=== PATIENT | female | born 1995 | race Two or more races ===

== ENCOUNTER 2021-08-20 14:27 | Outpatient (CLI) | payer OTHER | END 2021-08-20 15:45 | disposition home or self-care (01) | LOC: PRENATAL 14:27 | PROVIDERS: ATTEND Obstetrics & Gynecology Maternal & Fetal Medicine | DX: O35.0XX1 Maternal care for (suspected) central nervous system malformation in fetus, fetus 1 (principal); O35.3XX1 Maternal care for (suspected) damage to fetus from viral disease in mother, fetus 1; O98.512 Other viral diseases complicating pregnancy, second trimester; Z36.89 Encounter for other specified antenatal screening; Z3A.24 24 weeks gestation of pregnancy ==

== ENCOUNTER 2024-03-07 10:05 | Inpatient (IN) | payer OTHER ==
[~2024-03-07] VITALS: Ht 175.3 cm; Wt 88.5 kg
[2024-03-07 10:44] LABS: URINE APPEARANCE Clear; URINE BILIRRUBIN Negative (NEGATIVE); URINE BLOOD Small; URINE COLOR Yellow; URINE GLUCOSE Negative (NEGATIVE); URINE KETONE Trace (NEGATIVE); URINE LEUKOCYTE Negative; URINE NITRATE Negative; URINE PROTEIN 30 (NEGATIVE); URINE UROBILINOGEN 0.2 E.U./dl
[2024-03-07 10:47] LABS: URINE BACTERIA 369.1 uL (0.0-1933); URINE EPITHELIAL CELLS 19.3 uL (0.0-38.8); URINE RBC 42.4 uL (0.0-20.8); URINE WBC 7.5 uL (0.0-23.2)
[2024-03-07 11:00] LABS: HEMATOCRIT 38.1 % (36.0-45.00); HEMOGLOBIN 12.9 g/dL (12.0-15.00); INR < 0.93; MEAN CORPUSCULAR HEMOGLOBIN 31.9 pg (27.00-32.0); PARTIAL THROMBOPLASTIN TIME 24.2 SECONDS (22.0-34.0); PLATELET COUNT 297 K/uL (150-450); PROTHROMBIN TIME 9.4 SECONDS (9.0-11.5); RED BLOOD COUNT 4.05 M/uL (4.00-6.00); RED CELL DISTRIBUTION WIDTH 13.2 % (11.5-14.5)
[2024-03-08] MEDS ORDERED: VITATRUE COMBO1 EACH PO (07:49)
[2024-03-08] MEDS ORDERED: ERYTHROMYCIN BASE 1 GM TUBE OP ONE ×2 (14:47→17:00)
[2024-03-08] MEDS ORDERED: OXYTOCIN 10 UNITS/ML VIAL ONE (14:47)
[2024-03-08] MEDS ORDERED: CEFAZOLIN SODIUM 1,000 MG VIAL ONE (14:52)
[2024-03-08] MEDS ORDERED: OXYTOCIN 10 UNIT/ML (10ML) IV ONE (17:00)
[2024-03-08] MEDS ORDERED: CEFAZOLIN SODIUM 1,000 MG VIAL IV SCH (17:00)
[2024-03-08] MEDS ORDERED: PROMETHAZINE HCL 50 MG/ML AMPUL IM PRN (18:30)
[2024-03-08] MEDS ORDERED: MEPERIDINE HCL/PF 50 MG/ML VIAL IM PRN (18:30)
[2024-03-08 18:54] LABS: ABG PH 7.292 (7.35-7.45); ABG PO2 18.3 mmHg (80-100); ABG pCO2 52.7 mmHg (35-45); BASE EXCESS -2.5 mmol/l; BICARBONATE 24.8 mmol/l (23-25); SaO2 21.5 %; Tco2 26.5 mmol/l; o2 21 %
[2024-03-09 06:29] LABS: HEMATOCRIT 38.4 % (36.0-45.00); HEMOGLOBIN 13.3 g/dL (12.0-15.00); MEAN CELL VOLUME 93.5 fL (80.00-100.00); MEAN CORPUSCULAR HEMOGLOBIN 32.3 pg (27.00-32.0); MEAN CORPUSCULAR HGB CONC 34.6 g/dl (32.0-36.0); PLATELET COUNT 273 K/uL (150-450); RED BLOOD COUNT 4.11 M/uL (4.00-6.00); RED CELL DISTRIBUTION WIDTH 12.9 % (11.5-14.5)
[2024-03-09] MEDS ORDERED: PNV,CALCIUM 72/IRON/FOLIC ACID 1 TAB TABLET PO SCH (09:00)
[2024-03-09] MEDS ORDERED: OxyCODONE HCL/APAP UD (PERCOCET) PO PRN (09:00)
[2024-03-09] MEDS ORDERED: DOCUSATE SODIUM 100MG CAP PO SCH (09:00)
[2024-03-09] MEDS ORDERED: SIMETHICONE 125 MG CAPSULE PO SCH (09:00)
[2024-03-10] MEDS ORDERED: IBUprofen 600 MG TABLET PO PRN (13:45)
== END 2024-03-11 12:48 | disposition home or self-care (01) | DRG 788 ==
LOC: O/R 03-08 08:00 → OB/GYN 03-08 08:00 → O/R 03-08 18:55 → OB/GYN 03-08 21:19
PROVIDERS: ADMIT Obstetrics & Gynecology; ATTEND Obstetrics & Gynecology
PROC: 4A1HXCZ Monitoring of Products of Conception, Cardiac Rate, External Approach (ICD-10-PCS; 2024-03-08)
PROC: 10D00Z1 Extraction of Products of Conception, Low, Open Approach (ICD-10-PCS; principal; 2024-03-08 16:00)
DX: O82 Encounter for cesarean delivery without indication (principal); Z3A.39 39 weeks gestation of pregnancy; Z37.0 Single live birth; Z20.822 Contact with and (suspected) exposure to COVID-19

== ENCOUNTER 2024-07-20 10:12 | Emergency (ER) | payer OTHER ==
[~2024-07-20] VITALS: Ht 175.3 cm; Wt 72.6 kg
[~2024-07-20 10:12] MED LIST: VITATRUE COMBO1 EACH PO
[2024-07-20 10:54] VITALS: BP 116/76; O2SAT 98
[2024-07-20] MEDS ORDERED: KETOROLAC TROMETHAMINE 60 MG VIAL IM ONE (11:45)
[2024-07-20] MEDS ORDERED: TRIAMCINOLONE ACETONIDE 40 MG/ML VIAL IM ONE (11:45)
[2024-07-20] MEDS ORDERED: DICLOFENAC SODI75 MG PO (12:13)
== END 2024-07-20 13:29 | disposition home or self-care (01) ==
LOC: ER 10:14
DX: M54.50 Low back pain, unspecified (principal); W10.0XXA Fall (on)(from) escalator, initial encounter; Y93.89 Activity, other specified; Y92.89 Other specified places as the place of occurrence of the external cause
CPT/HCPCS: 72100; 96372; 99283; J1100; J1885

== ENCOUNTER → 2024-07-21 | Emergency (ER) | payer OTHER ==
[~2024-07-21] VITALS: Ht 172.7 cm; Wt 77.1 kg
[~2024-07-21] MED LIST changes: +DICLOFENAC SODI75 MG PO
== END | disposition left against medical advice (07) ==
LOC: ER 13:44
DX: Z53.21 Procedure and treatment not carried out due to patient leaving prior to being seen by health care provider (principal)